=== PATIENT | female | born 1990 | race Caucasian/White ===

== ENCOUNTER 2019-01-13 01:34 | Emergency (ER) | payer OTHER ==
[2019-01-13] MEDS ORDERED: NS 1,000 ML IV ONE (01:46)
[2019-01-13] MEDS ORDERED: ONDANSETRON 4 MG/2 ML VIAL IVP ONE (01:46)
--- NOTE | 2019-01-13 01:49 | EDPHY ---
H & P Stated Complaint: N/V/D Time Seen by Provider: 01/13/19 01:46 HPI/ROS: Chief Complaint: Abdominal pain, nausea, diarrhea HPI: 28-year-old woman began having headache and nausea about 5:00 a.m. Yesterday afternoon. She started having some abdominal pain shortly after that. Pain is in her central abdomen. She has vomited once about 7:00 a.m.. She had multiple episodes of watery diarrhea. Abdominal pain is about a 5/10. Feels better when she curls up in a ball. Worse with moving around or bumps in the car. No urinary urgency or frequency. Does not know her last menstrual., she currently has an IUD in place. No abnormal vaginal discharge or bleeding. No blood or dark tarry stools. No hematemesis. No fevers or chills. No cough. ROS: 10 systems were reviewed and were negative except those elements noted in the HPI. PMH: Recent concussion, depression Social History: No smoking, no alcohol, no recreational drug use Family History: non-contributory Physical Exam: Gen: Awake, Alert, No Distress HEENT: Nose: no rhinorrhea Eyes: PERRLA, EOMI Mouth: Moist mucosa Neck: Supple, no JVD Chest: nontender, lungs clear to auscultation Heart: S1, S2 normal, no murmur Abd: Soft, tenderness most pronounced in the right lower quadrant with voluntary guarding Back: no CVA tenderness, no midline tenderness Ext: no edema, non-tender Skin: no rash Neuro: CN II-XII intact, Sensation grossly intact, Strength 5/5 in bilateral upper and lower extremities - Personal History LMP (Females 10-55): IUD In Place Current Tetanus/Diphtheria Vaccine: Yes Current Tetanus Diphtheria and Acellular Pertussis (TDAP): Yes - Medical/Surgical History Hx Asthma: No Hx Chronic Respiratory Disease: No Hx Diabetes: No Hx Cardiac Disease: No Hx Renal Disease: No Hx Cirrhosis: No Hx Alcoholism: No Hx HIV/AIDS: No Hx Splenectomy or Spleen Trauma: No Other PMH: ortho, depression - Social History Smoking Status: Never smoked Constitutional: Initial Vital Signs Temperature (C) 37.3 C 01/13/19 01:38 Heart Rate 101 H 01/13/19 01:38 Respiratory Rate 16 01/13/19 01:38 Blood Pressure 111/68 01/13/19 01:38 O2 Sat (%) 95 01/13/19 01:38 O2 Delivery Mode Room Air Allergies/Adverse Reactions: No Known Allergies Allergy (Verified 01/13/19 01:37) Home Medications: Medication Instructions Recorded Sertraline HCl [Zoloft 100mg (*)] 200 mg 01/13/19 Medical Decision Making - Diagnostics Imaging Results: Abdominal ultrasound: Nonvisualized appendix. Study interpreted by Dr. Rosa, direct Radiology. CT scan of the abdomen pelvis shows no acute intra-abdominal or pelvic abnormality. Study interpreted by Dr. Gonzalez, direct Radiology. ED Course/Re-evaluation: 28-year-old with nausea vomiting abdominal pain diarrhea and right lower quadrant tenderness. Will obtain ultrasound to evaluate her appendix. Laboratory evaluations and test will see ordered as well. IV hydration analgesia and antiemetics. Appendix was not visualized on the ultrasound. She is feeling better. She has persistent right lower quadrant tenderness on exam. Will obtain CT scan to rule out acute appendicitis. She does have a leukocytosis with a left shift. CT scan of the abdomen and pelvis is completely normal. Patient is feeling improved. Leukocytosis is likely secondary to the vomiting and diarrhea. Will p.o. Challenge with plan for discharge. - Data Points Laboratory Results: Laboratory Results 01/13/19 01:50 01/13/19 01:50 01/13/19 01/13/19 01/13/19 01:50 01:50 01:50 WBC 13.27 10^3/uL H 10^3/uL (3.80-9.50) RBC 5.37 10^6/uL H 10^6/uL (4.18-5.33) Hgb 16.5 g/dL H g/dL (12.6-16.3) Hct 47.9 % H % (38.0-47.0) MCV 89.2 fL fL (81.5-99.8) MCH 30.7 pg pg (27.9-34.1) MCHC 34.4 g/dL g/dL (32.4-36.7) RDW 12.7 % % (11.5-15.2) Plt Count 279 10^3/uL 10^3/uL (150-400) MPV 9.8 fL fL (8.7-11.7) Neut % (Auto) 93.5 % H % (39.3-74.2) Lymph % (Auto) 3.5 % L % (15.0-45.0) Porter % (Auto) 2.1 % L % (4.5-13.0) Eos % (Auto) 0.2 % L % (0.6-7.6) Baso % (Auto) 0.4 % % (0.3-1.7) Nucleat RBC Rel Count 0.0 % % (0.0-0.2) Absolute Neuts (auto) 12.41 10^3/uL H 10^3/uL (1.70-6.50) Absolute Lymphs (auto) 0.46 10^3/uL L 10^3/uL (1.00-3.00) Absolute Monos (auto) 0.28 10^3/uL L 10^3/uL (0.30-0.80) Absolute Eos (auto) 0.03 10^3/uL 10^3/uL (0.03-0.40) Absolute Basos (auto) 0.05 10^3/uL 10^3/uL (0.02-0.10) Absolute Nucleated RBC 0.00 10^3/uL 10^3/uL (0-0.01) Immature Gran % 0.3 % % (0.0-1.1) Immature Gran # 0.04 10^3/uL 10^3/uL (0.00-0.10) RBC/WBC/PLT Morphology TNP Platelet Estimate TNP Sodium 140 mEq/L mEq/L (135-145) Potassium 3.9 mEq/L mEq/L (3.5-5.2) Chloride 108 mEq/L mEq/L (97-110) Carbon Dioxide 22 mEq/l mEq/l (22-31) Anion Gap 10 mEq/L mEq/L (6-14) BUN 19 mg/dL mg/dL (7-23) Creatinine 0.7 mg/dL mg/dL (0.6-1.0) Estimated GFR > 60 Glucose 117 mg/dL H mg/dL (70-100) Calcium 9.4 mg/dL mg/dL (8.5-10.4) Beta HCG, Qual NEGATIVE Medications Given: Discontinued Medications Fentanyl (Sublimaze) 50 mcg IVP EDNOW ONE Stop: 01/13/19 02:01 Last Admin: 01/13/19 02:02 Dose: 50 mcg Sodium Chloride (Ns) 1,000 mls @ 0 mls/hr IV ONCE ONE; Wide Open PRN Reason: Protocol Stop: 01/13/19 01:47 Last Admin: 01/13/19 01:50 Dose: 1,000 mls Ondansetron HCl (Zofran) 4 mg IVP EDNOW ONE Stop: 01/13/19 01:47 Last Admin: 01/13/19 01:56 Dose: 4 mg Departure - Departure Disposition: Home, Routine, Self-Care Clinical Impression: Acute gastroenteritis Condition: Good Instructions: Gastroenteritis (ED), Acute Nausea and Vomiting (ED), Ondansetron (By mouth) Additional Instructions: You may take ondansetron as needed for nausea and vomiting. Avoid alcohol, dairy, spicy foods, and fatty foods for the next 24 hr. Follow up with primary care physician in 3-4 days if symptoms are not improving. Return to the emergency department for increasing abdominal pain, uncontrolled nausea vomiting, fevers, or any other concerns. Referrals: Agatha Son MD [Primary Care Provider] - As per Instructions
[2019-01-13] MEDS ORDERED: fentaNYL 100 MCG/2 ML INJ IVP ONE (02:00)
[2019-01-13 02:29] LABS: PLATELET COUNT 279 10^3/uL (150-400)
[2019-01-13] MEDS ORDERED: IOPAMIDOL (ISOVUE-300) 100 ML BTL ONE (02:40)
[2019-01-13] MEDS ORDERED: ONDANSETRON 4MG PREPACK#2 BTL TAKEHOME ONE (03:16)
[2019-01-13 04:28] VITALS: BP 101/52
== END 2019-01-13 04:00 | disposition home or self-care (01) ==
DX: K52.9 Noninfective gastroenteritis and colitis, unspecified (principal); E86.9 Volume depletion, unspecified
CPT/HCPCS: 96374; J2405; J3010; Q9967